=== PATIENT | female | born 1965 | race Two or more races ===

== ENCOUNTER → 2020-07-26 08:00 | Outpatient (CLI) | payer OTHER | END | disposition home or self-care (01) | LOC: LAB 08:00 → ADM 08:15 → CIR.AMB 08-01 08:15 → EDSTATUS 08-01 08:15 | PROVIDERS: ATTEND Specialist | DX: U07.1 COVID-19 (principal); D21.6 Benign neoplasm of connective and other soft tissue of trunk, unspecified; Z01.812 Encounter for preprocedural laboratory examination; Z01.810 Encounter for preprocedural cardiovascular examination; Z11.59 Encounter for screening for other viral diseases ==

== ENCOUNTER 2022-05-18 06:00 | Day surgery (SDC) | payer OTHER ==
[~2022-05-18] VITALS: Ht 165.1 cm; Wt 88.5 kg
[~2022-05-18 06:00] MED LIST: ZYRTEC10 MG PO
[2022-05-18] MEDS ORDERED: CEFADROXIL500 MG PO (12:27)
== END 2022-05-18 15:00 | disposition home or self-care (01) ==
LOC: CIR.AMB 06:00
PROVIDERS: ATTEND Surgery
DX: D17.1 Benign lipomatous neoplasm of skin and subcutaneous tissue of trunk (principal); Z20.822 Contact with and (suspected) exposure to COVID-19; Z87.891 Personal history of nicotine dependence